=== PATIENT | female | born 1970 | race Caucasian/White ===

== ENCOUNTER 2024-12-28 18:14 | Emergency (ER) | payer OTHER ==
[~2024-12-28] VITALS: Ht 170.2 cm; Wt 65.8 kg
[2024-12-28] MEDS ORDERED: TDAP DIPH,PERTUSS,TET VAC/PF 0.5 ML DISP.SYRIN IM ONE (19:05)
[2024-12-28 19:16] LABS: PLATELET COUNT (AUTO) 300 K/uL (179-408); RED BLOOD CELL COUNT(AUTO) 3.62 MIL/uL (3.63-4.92); RED CELL DISTRIBUTION WIDTH 12.9 % (12.3-17.7); WHITE BLOOD COUNT (AUTO) 7.1 K/uL (3.8-11.8)
[2024-12-28] MEDS: TDAP DIPH,PERTUSS,TET VAC/PF 0.5 ML DISP.SYRIN IM ONE (19:26)
[2024-12-28 19:27] LABS: CREATININE 0.6 mg/dL (0.6-1.3); SODIUM SERUM 137 mmol/L (136-145); UREA NITROGEN, BLOOD 6 mg/dL (7-18)
[2024-12-28 19:30] LABS: ETHANOL < 3 MG/DL (0-10)
[2024-12-28 19:32] LABS: ASPARTATE AMINOTRANSFERASE 7 U/L (15-37); TOTAL PROTEIN, SERUM 7.0 g/dL (6.4-8.2)
[2024-12-28 20:36] LABS: *BILIRUBIN,URIN NEGATIVE (NEGATIVE); *BLOOD, URINE NEGATIVE (NEGATIVE); *CLARITY,URINE CLEAR (CLEAR); *COLOR,URINE YELLOW (YELLOW); *KETONES,URINE NEGATIVE (NEGATIVE); *PROTEIN,URINE NEGATIVE (NEGATIVE); *UROBILINOGEN,URINE 0.2 E.U./dl (NORMAL); LEUKOCYTE ESTERASE ,URINE NEGATIVE (NEGATIVE); NITRITE, URINE NEGATIVE (NEGATIVE); UGLUCOSE NEGATIVE (NEGATIVE)
[2024-12-28 20:47] LABS: *AMPHETAMINE, URINE NEGATIVE (NEGATIVE); *BARBITURATE, URINE NEGATIVE (NEGATIVE); *BENZODIAZEPINE, URINE NEGATIVE (NEGATIVE); *CANNABINOID, URINE NEGATIVE (NEGATIVE); *COCCAINE, URINE NEGATIVE (NEGATIVE); *OPIATE, URINE NEGATIVE (NEGATIVE); *PHENCYCLIDINE SCREEN,URINE NEGATIVE (NEGATIVE); FENTANYL, URINE NEGATIVE (NEGATIVE)
[2024-12-28 21:01] VITALS: BP 110/64
[2024-12-28] MEDS ORDERED: LORAZEPAM 2 MG/1 ML VIAL ONE ×2 (21:22→23:00)
[2024-12-28] MEDS ORDERED: PRAZ2CAP2 PO (21:26)
[2024-12-28] MEDS ORDERED: HYDR25CA PO (21:26)
[2024-12-28] MEDS: LORAZEPAM 2 MG/1 ML VIAL IM ONE ×2 (21:28→23:04)
[2024-12-28 21:54] VITALS: BP 105/60; O2SAT 99
== END 2024-12-28 21:55 | disposition home or self-care (01) ==
LOC: ER 18:23
DX: S61.211A Laceration without foreign body of left index finger without damage to nail, initial encounter (principal); G47.00 Insomnia, unspecified; F43.10 Post-traumatic stress disorder, unspecified; F41.9 Anxiety disorder, unspecified; R44.0 Auditory hallucinations; R44.1 Visual hallucinations; W45.8XXA Other foreign body or object entering through skin, initial encounter; Y93.89 Activity, other specified; Y92.89 Other specified places as the place of occurrence of the external cause; Y99.8 Other external cause status
CPT/HCPCS: 80076; 80048; 81003; 85025; 85730; 84484; 36415; 90715; 99284; 96372 ×2; 90471; 80299; 80320; 80307; J2060 ×2; A4606; A4663; G0480